=== PATIENT | female | born 1995 | race Caucasian/White ===

== ENCOUNTER 2017-02-05 10:15 | Emergency (ER) | payer OTHER ==
[~2017-02-05] VITALS: Ht 167.6 cm; Wt 127.3 kg
[2017-02-05 10:23] VITALS: BP 130/83
== END 2017-02-05 11:57 | disposition home or self-care (01) ==
LOC: ED 11:02
DX: S93.492A Sprain of other ligament of left ankle, initial encounter (principal); Z88.0 Allergy status to penicillin; W10.9XXA Fall (on) (from) unspecified stairs and steps, initial encounter; Y93.01 Activity, walking, marching and hiking; Y92.098 Other place in other non-institutional residence as the place of occurrence of the external cause; Y99.8 Other external cause status
CPT/HCPCS: 99284

== ENCOUNTER 2021-01-01 19:49 | Emergency (ER) | payer OTHER ==
[~2021-01-01] VITALS: Ht 167.6 cm; Wt 149.9 kg
[2021-01-01] MEDS ORDERED: DIPH,PERTUSS(ACELL),TET VAC/PF 0.5 ML IM-VACC ONE ×2 (20:23→20:30)
[2021-01-01] MEDS ORDERED: LIDOCAINE-MPF 1%, 5ML ONE (20:23)
[2021-01-01] MEDS ORDERED: LIDOCAINE-MPF 1%, 5ML INFIL ONE (20:30)
--- NOTE | 2021-01-01 20:30 | NUR ---
PT GIVEN TDAP. PA AT BEDSIDE TO SUTURE
[2021-01-01] MEDS ORDERED: NEOSPORIN OINT. PKT 1 PACKET ONE (20:57)
--- NOTE | 2021-01-01 21:17 | NUR ---
Patient given discharge instructions and they have confirmed that they understand the instructions. Patient ambulatory with steady gait. NAD, all questions answered appropriately, denies additional needs at this time. No personal belongings left in room after discharge.
[2021-01-01 21:19] VITALS: BP 118/72
== END 2021-01-01 21:22 | disposition home or self-care (01) ==
LOC: ED 21:00
DX: S61.412A Laceration without foreign body of left hand, initial encounter (principal); W26.0XXA Contact with knife, initial encounter; Y93.89 Activity, other specified; Y92.009 Unspecified place in unspecified non-institutional (private) residence as the place of occurrence of the external cause; Y99.8 Other external cause status
CPT/HCPCS: 12041; 90471; 90715